=== PATIENT | female | born 1940 | race Caucasian/White ===

== ENCOUNTER 2017-12-27 17:46 | Inpatient (IN) | payer MEDICARE ==
[~2017-12-27] VITALS: Ht 165.1 cm; Wt 86.4 kg
[~2017-12-27 17:46] MED LIST: ASPI-1 PO; CLOP75TA35 PO; DIAZ2TAB PO; EZET10TA14 PO; FOLIC ACID PO; GLUC-133 PO; LEVO50TA8 PO; LOSA50TA21 PO; METO25TA6 PO; OMEG-182 PO; PROBIOTIC; TUMERIC PO; UBID1CAP54 PO; vitamin b12 PO
[2017-12-27 18:21] LABS: BASOPHILS # (AUTO) 0.1 X10'3 (0-0.2); BASOPHILS % (AUTO) 0.7 % (0-1); EOSINOPHILS # (AUTO) 0.1 X10'3 (0-0.9); HEMATOCRIT 44.8 % (35.0-45.0); HEMOGLOBIN 14.8 g/dl (12.0-16.0); LYMPHOCYTES % (AUTO) 27.5 % (21-51); MEAN CORPUSCULAR HEMOGLOBIN 29.4 PG (27.0-31.0); MEAN PLATELET VOLUME 6.3 FL (7.4-10.4); MONOCYTES # (AUTO) 0.6 X10'3 (0-0.9); MONOCYTES % (AUTO) 7.8 % (2-12); NEUTROPHILS # (AUTO) 4.5 X10'3 (1.8-7.7); PLATELET COUNT 270 X10'3 (140-440); RED BLOOD COUNT 5.04 X10'6 (4.20-5.60); WHITE BLOOD COUNT 7.3 X10'3 (4.5-11.0)
[2017-12-27 18:35] LABS: PARTIAL THROMBOPLASTIN TIME 28 SECONDS (22-32); PROTHROMBIN TIME 9.8 SECONDS (9.0-12.0)
[2017-12-27] MEDS ORDERED: nitroGLYCERIN 0.4mg/hour patch TD ONE (18:35)
[2017-12-27 18:37] LABS: ALANINE AMINOTRANSFERASE 30 U/L (12-78); ALBUMIN 3.7 G/DL (3.4-5.0); ALBUMIN/GLOBULIN RATIO 0.9 (1.1-1.5); ALKALINE PHOSPHATASE 66 IU/L (46-116); ANION GAP 8 (8-16); ASPARTATE AMINO TRANSFERASE 22 U/L (10-37); BILIRUBIN,TOTAL 0.3 MG/DL (0.1-1.0); BLOOD UREA NITROGEN 21 MG/DL (7-18); BUN/CREATININE RATIO 21.9 (6.6-38.0); CALCIUM 9.8 MG/DL (8.5-10.1); CHLORIDE 105 MMOL/L (99-107); CREATININE 0.96 MG/DL (0.40-0.90); GLUCOSE 94 MG/DL (70-104); POTASSIUM 3.6 MMOL/L (3.5-5.1); SODIUM 140 MMOL/L (135-145); TOTAL PROTEIN 7.6 G/DL (6.4-8.2); eGFR 56 ML/MIN
[2017-12-27] MEDS ORDERED: temazepam 15mg capsule PO PRN (21:00)
[2017-12-27] MEDS ORDERED: METO25TA6 PO (21:06)
[2017-12-27] MEDS ORDERED: METO50TA16 (21:06)
[2017-12-27] MEDS ORDERED: CHOL10002 PO (21:06)
[2017-12-27] MEDS ORDERED: RED30POW (21:06)
[2017-12-27] MEDS ORDERED: GARL1000 (21:06)
[2017-12-27] MEDS ORDERED: LEVO75TA PO (21:06)
[2017-12-27] MEDS ORDERED: DULO20CA50 PO (21:06)
[2017-12-27] MEDS ORDERED: ASPI-1265 PO (21:06)
[2017-12-27] MEDS ORDERED: LOSA50TA3 PO (21:06)
[2017-12-27] MEDS ORDERED: HYDROcodone/acetaminophen 5mg/325mg tablet PO PRN (21:20)
[2017-12-27] MEDS ORDERED: bisacodyl 10mg suppository rectal RC PRN (21:20)
[2017-12-27] MEDS ORDERED: HYDROmorphone 1 mg/ml syringe IV PRN (21:20)
[2017-12-27] MEDS ORDERED: magnesium hydroxide 30ml (MOM) UD suspension PO PRN (21:20)
[2017-12-27] MEDS ORDERED: HYDROcodone/acetaminophen 10/325mg tab PO PRN (21:20)
[2017-12-27] MEDS ORDERED: diphenhydrAMINE 50 mg/ml inj IV PRN (21:20)
[2017-12-27] MEDS ORDERED: acetaminophen 650mg rectal suppository RC PRN (21:20)
[2017-12-27] MEDS ORDERED: mag hydrox/Alum hydrox/simeth 30ml oral suspension PO PRN (21:20)
[2017-12-27] MEDS ORDERED: diphenhydrAMINE 25mg capsule PO PRN (21:20)
[2017-12-27] MEDS ORDERED: morphine 2 MG/ML inj. syringe IV PRN (21:20)
[2017-12-27] MEDS ORDERED: ondansetron/PF 4mg/2ml inj IV PRN (21:20)
[2017-12-27] MEDS ORDERED: acetaminophen 325mg tablet PO PRN ×2 (21:20)
[2017-12-27] MEDS ORDERED: metoclopramide 5 mg/ml inj IV PRN (21:20)
[2017-12-27] MEDS ORDERED: aminophylline 250mg/10ml inj. IV PRN (21:25)
[2017-12-27] MEDS ORDERED: nitroGLYCERIN 0.4mg SUBLingual tab SL PRN (21:25)
[2017-12-27] MEDS ORDERED: metoprolol tartrate 1mg/ml inj IV PRN (21:25)
[2017-12-27 21:40] LABS: HEMOGLOBIN A1C 5.8 % (4.5-6.2)
[2017-12-27 21:46] LABS: PHOSPHORUS 3.4 MG/DL (2.3-4.5)
[2017-12-27 22:05] VITALS: BP 121/44
[2017-12-27] MEDS: dextrose 5%-1/2 normal saline 1,000 ML IV SCH (22:09)
[2017-12-28] VITALS (14 sets, daily range): BP systolic 98–155; BP diastolic 44–63
[2017-12-28] MEDS ORDERED: regadenoson 0.4mg/5ml syringe IV ONE ×2 (06:00→09:05)
[2017-12-28] MEDS: dextrose 5%-1/2 normal saline 1,000 ML IV SCH ×3 (06:04→20:13)
[2017-12-28 07:16] LABS: CHOL/HDL RATIO 3.7 (0.00-4.99); CHOLESTEROL 180 MG/DL (0-200); HDL CHOLESTEROL 49 MG/DL (35-60); LDL CHOLESTEROL 113 MG/DL (50-100); TRIGLYCERIDES 94 MG/DL (20-135)
[2017-12-28] MEDS: pantoprazole 40mg Tablet.DR PO SCH (07:30)
[2017-12-28] MEDS: aspirin 81mg tab.chew PO SCH (07:53)
[2017-12-28] MEDS: docusate sod 100mg capsule PO SCH ×2 (07:54→20:21)
[2017-12-28] MEDS: clopidogrel 75mg tablet PO SCH (07:54)
[2017-12-28] MEDS: duloxetine 20mg capsule.DR PO SCH (07:54)
[2017-12-28] MEDS: losartan 50mg tablet PO SCH (07:54)
[2017-12-28] MEDS: levoTHYROXINE 25mcg tablet PO SCH (07:55)
[2017-12-28] MEDS: ezetimibe 10mg tablet PO SCH (07:55)
[2017-12-28] MEDS ORDERED: metoprolol tartrate 25mg tablet PO SCH (08:00)
[2017-12-28] MEDS: furosemide 20 MG/2 ML vial IV SCH ×2 (08:45→20:17)
[2017-12-28] MEDS ORDERED: aminophylline inj. 10 ML IV ONE (09:05)
[2017-12-28] MEDS ORDERED: nitroGLYCERIN 0.2mg/hour patch TD SCH (18:00)
[2017-12-28] MEDS: metoprolol tartrate 25mg tablet PO SCH (20:21)
[2017-12-29] VITALS: BP 146/51
[2017-12-29] MEDS ORDERED: nitroGLYCERIN 0.4mg/hour patch TD SCH (08:00)
[2017-12-29 08:04] VITALS: BP 193/70
[2017-12-29] MEDS: levoTHYROXINE 25mcg tablet PO SCH (08:28)
[2017-12-29] MEDS: furosemide 20 MG/2 ML vial IV SCH (08:28)
[2017-12-29] MEDS: aspirin 81mg tab.chew PO SCH (08:29)
[2017-12-29] MEDS: pantoprazole 40mg Tablet.DR PO SCH (08:30)
[2017-12-29] MEDS: docusate sod 100mg capsule PO SCH (08:31)
[2017-12-29] MEDS: duloxetine 20mg capsule.DR PO SCH (08:32)
[2017-12-29] MEDS: clopidogrel 75mg tablet PO SCH (08:32)
[2017-12-29] MEDS: ezetimibe 10mg tablet PO SCH (08:32)
[2017-12-29] MEDS: metoprolol tartrate 25mg tablet PO SCH (08:33)
[2017-12-29] MEDS: losartan 50mg tablet PO SCH (08:33)
[2017-12-29] MEDS: dextrose 5%-1/2 normal saline 1,000 ML IV SCH (08:44)
[2017-12-29] MEDS ORDERED: FURO-150 PO (09:43)
[2017-12-29 10:47] LABS: ALBUMIN 3.3 G/DL (3.4-5.0); ANION GAP 7 (8-16); BLOOD UREA NITROGEN 14 MG/DL (7-18); BUN/CREATININE RATIO 14.4 (6.6-38.0); CALCIUM 9.5 MG/DL (8.5-10.1); CHLORIDE 105 MMOL/L (99-107); CREATININE 0.97 MG/DL (0.40-0.90); GLUCOSE 88 MG/DL (70-104); POTASSIUM 3.7 MMOL/L (3.5-5.1); SODIUM 142 MMOL/L (135-145); TOTAL CARBON DIOXIDE 30.1 MMOL/L (24-32); eGFR 56 ML/MIN
[2017-12-29 11:17] VITALS: BP 177/67
== END 2017-12-29 14:13 | disposition home or self-care (01) | DRG 315 ==
LOC: ER 17:46 → ED HOLD 21:17 → EDBEDREQ 21:36 → SUR 3N 22:00
PROVIDERS: ADMIT Family Medicine; ATTEND Internal Medicine
PROC: 4A02XM4 Measurement of Cardiac Total Activity, External Approach (ICD-10-PCS; principal; 2017-12-28)
PROC: 3E033HZ Introduction of Radioactive Substance into Peripheral Vein, Percutaneous Approach (ICD-10-PCS; 2017-12-28)
DX: I27.81 Cor pulmonale (chronic) (principal); N17.9 Acute kidney failure, unspecified; I16.1 Hypertensive emergency; I50.9 Heart failure, unspecified; E03.9 Hypothyroidism, unspecified; E78.00 Pure hypercholesterolemia, unspecified; E78.5 Hyperlipidemia, unspecified; G47.30 Sleep apnea, unspecified; I25.10 Atherosclerotic heart disease of native coronary artery without angina pectoris; I44.7 Left bundle-branch block, unspecified; I87.2 Venous insufficiency (chronic) (peripheral); J44.9 Chronic obstructive pulmonary disease, unspecified; G89.29 Other chronic pain; M54.9 Dorsalgia, unspecified; I49.5 Sick sinus syndrome; I08.0 Rheumatic disorders of both mitral and aortic valves; I11.0 Hypertensive heart disease with heart failure; Z90.710 Acquired absence of both cervix and uterus; Z95.0 Presence of cardiac pacemaker; Z95.5 Presence of coronary angioplasty implant and graft; Z88.8 Allergy status to other drugs, medicaments and biological substances; Z79.890 Hormone replacement therapy; Z79.899 Other long term (current) drug therapy; Z79.82 Long term (current) use of aspirin
CPT/HCPCS: 36415; 71045; 78452; 80048; 80053; 80061; 83036; 83735; 83880; 84100; 84443; 84484; 85025; 85610; 85730; 87070; 93005; 93017; 99285; A9500; G0378; J0280; J1940

== ENCOUNTER 2018-01-19 08:44 | Outpatient (CLI) | payer MEDICARE ==
[~2018-01-19] VITALS: Ht 165.1 cm; Wt 84.8 kg
[~2018-01-19 08:44] MED LIST changes: -ASPI-1 PO; +ASPI-1265 PO; +CHOL10002 PO; -DIAZ2TAB PO; +DULO20CA50 PO; +FURO-150 PO; +GARL1000; -LEVO50TA8 PO; +LEVO75TA PO; -LOSA50TA21 PO; +LOSA50TA3 PO; +METO50TA16; -PROBIOTIC; +RED30POW
[2018-01-19] MEDS ORDERED: albuterol 2.5 MG/3 ML nebule ONE (09:42)
== END 2018-01-19 23:59 | disposition home or self-care (01) ==
LOC: RT 08:44
PROVIDERS: ATTEND Family Medicine
DX: R06.09 Other forms of dyspnea (principal); R42 Dizziness and giddiness; R90.82 White matter disease, unspecified; K21.9 Gastro-esophageal reflux disease without esophagitis; G47.39 Other sleep apnea; I11.0 Hypertensive heart disease with heart failure; I50.9 Heart failure, unspecified; J44.9 Chronic obstructive pulmonary disease, unspecified; F17.210 Nicotine dependence, cigarettes, uncomplicated; Z79.82 Long term (current) use of aspirin; Z79.899 Other long term (current) drug therapy; Z90.710 Acquired absence of both cervix and uterus
CPT/HCPCS: 70450; 94060; 94727; 94729; 94760

== ENCOUNTER 2018-08-23 06:47 | Inpatient (IN) | payer MEDICARE ==
[2018-08-17 11:43] LABS: BASOPHILS # (AUTO) 0.1 X10'3 (0-0.2); BASOPHILS % (AUTO) 1.2 % (0-1); EOSINOPHILS # (AUTO) 0.2 X10'3 (0-0.9); LYMPHOCYTES # (AUTO) 2.2 X10'3 (1.1-4.8); LYMPHOCYTES % (AUTO) 25.7 % (21-51); MEAN CORPUSCULAR HEMOGLOBIN 30.3 PG (27.0-31.0); MEAN CORPUSCULAR HGB CONC 33.7 g/dL (33.0-36.5); MEAN CORPUSCULAR VOLUME 89.8 FL (78-98); MEAN PLATELET VOLUME 6.5 FL (7.4-10.4); MONOCYTES # (AUTO) 0.8 X10'3 (0-0.9); MONOCYTES % (AUTO) 9.1 % (2-12); NEUTROPHILS # (AUTO) 5.2 X10'3 (1.8-7.7); PRE OP HEMATOCRIT 41.5 % (35.0-45.0); PRE OP PLATELET COUNT 276 X10'3 (140-440); RED BLOOD COUNT 4.62 X10'6 (4.20-5.60); RED CELL DISTRIBUTION WIDTH 13.1 % (11.5-14.5)
[2018-08-17 12:05] LABS: ALBUMIN 3.6 G/DL (3.4-5.0); ALBUMIN/GLOBULIN RATIO 0.9 (1.1-1.5); BLOOD UREA NITROGEN 21 MG/DL (7-18); BUN/CREATININE RATIO 22.8 (6.6-38.0); CALCIUM 8.9 MG/DL (8.5-10.1); CHLORIDE 104 MMOL/L (99-107); CREATININE 0.92 MG/DL (0.40-0.90); PRE OP ANION GAP 8 (8-16); PRE OP AST 19 U/L (10-37); PRE OP BILIRUB, TOTAL 0.4 MG/DL (0.0-1.0); PRE OP GLUCOSE 92 MG/DL (70-104); PRE OP POTASSIUM 3.9 MMOL/L (3.4-5.1); PRE OP SODIUM 140 MMOL/L (135-145); TOTAL CARBON DIOXIDE 27.9 MMOL/L (24-32); TOTAL PROTEIN 7.6 G/DL (6.4-8.2); eGFR 59 ML/MIN
[2018-08-17 12:06] LABS: ALKALINE PHOSPHATASE 65 IU/L (46-116); PRE OP ALT 32 U/L (30-65); PRE OP PROTIME 9.9 SECONDS (9.0-12.0)
[2018-08-23] VITALS (18 sets, daily range): BP systolic 121–148; BP diastolic 48–67
[~2018-08-23] VITALS: Ht 165.1 cm; Wt 83.3 kg
[~2018-08-23 06:47] MED LIST changes: +CLOP75TA15 PO; -CLOP75TA35 PO; +DOCUMENT DATE & TIME OF BETA-BLOCKER PO ONE; -FURO-150 PO; -GLUC-133 PO; +GLUCOSAMINE/MSN PO; -LEVO75TA PO; +LEVO88TA2 PO; -METO50TA16; +METO50TA16 PO; +acetaminophen 325mg tablet PO ONE; +cefazolin/dext.iso 2gm/100 ML IV ONE; +celeCOXIB 100mg capsule PO ONE; +famotidine 20mg tablet PO ONE; +gabapentin 300mg capsule PO ONE; +metoclopramide 5 mg/ml inj IV ONE; +oxyCODONE SR 10mg (sust. release) tab PO ONE; +ringers solution, lacted 1,000 ML IV SCH; +tranexamic acid inj. 1,000 MG in normal saline 100 ML IV ONE; +vancomycin inj 1,500 MG in normal saline 300ml IV soln IV ONE
[2018-08-23] MEDS ORDERED: bisacodyl 10mg suppository rectal RC PRN (06:50)
[2018-08-23] MEDS ORDERED: HYDROcodone/acetaminophen 10/325mg tab PO PRN (06:50)
[2018-08-23] MEDS ORDERED: HYDROmorphone 1 mg/ml syringe IV PRN (06:50)
[2018-08-23] MEDS ORDERED: HYDROmorphone inj. 0.5 MG/0.5 ML DISP.SYRIN IV PRN (06:50)
[2018-08-23] MEDS ORDERED: magnesium hydroxide 30ml (MOM) UD suspension PO PRN (06:50)
[2018-08-23] MEDS ORDERED: diphenhydrAMINE 25mg capsule PO PRN ×2 (06:50)
[2018-08-23] MEDS ORDERED: epiNEPHrine 1 mg/ml inj ONE (07:31)
[2018-08-23] MEDS ORDERED: ketorolac trometh. 30mg/ml inj. ONE (07:31)
[2018-08-23] MEDS ORDERED: vancomycin 1,000mg inj ONE (07:32)
[2018-08-23] MEDS ORDERED: ROPIVAcaine 0.5% (5mg/ml) 30ml vial ONE ×2 (07:32→08:09)
[2018-08-23] MEDS ORDERED: cloNIDine hcl/PF 100mcg/ml inj ONE (07:32)
[2018-08-23] MEDS: gabapentin 300mg capsule PO SCH ×3 (08:00→19:52)
[2018-08-23] MEDS: multivitamins, therapeutics tablet PO SCH (08:00)
[2018-08-23] MEDS: ascorbic acid 500mg tablet PO SCH ×2 (08:00→19:52)
[2018-08-23] MEDS ORDERED: fentaNYL/PF 50MCG/1 ML 2ML syringe ONE (08:06)
[2018-08-23] MEDS ORDERED: MIDAZolam 1mg/ml 10ml vial ONE (08:06)
[2018-08-23] MEDS ORDERED: morphine /PF 1mg/ml 10ml inj. ONE (08:06)
[2018-08-23] MEDS ORDERED: propofol 10mg/ml 20ml vial IV ONE (08:09)
[2018-08-23] MEDS ORDERED: tetracaine 1% (10mg/ml) pres. free inj. ONE (08:09)
[2018-08-23] MEDS ORDERED: LIDOcaine 1%/PF 5ML 10 MG/ML VIAL ONE (08:09)
[2018-08-23] MEDS ORDERED: ringers solution, lacted 1,000 ML IV SCH (08:12)
[2018-08-23] MEDS ORDERED: morphine 4 MG/ML inj SYRINge IV PRN ×2 (08:15)
[2018-08-23] MEDS ORDERED: labetalol 20mg/4ml (5mg/ml) syringe IV PRN (08:15)
[2018-08-23] MEDS ORDERED: fentaNYL/PF 50MCG/1 ML 2ML syringe IV PRN ×2 (08:15)
[2018-08-23] MEDS ORDERED: hydrALAZINE 20mg/ml inj. IV PRN (08:15)
[2018-08-23] MEDS ORDERED: ondansetron/PF 4mg/2ml inj IV PRN ×2 (08:15→09:05)
[2018-08-23] MEDS ORDERED: ePHEDrine 50MG/ML INJ. ONE (08:49)
[2018-08-23] MEDS ORDERED: dexamethasone sod phosphate 4mg/ml inj. ONE (08:55)
[2018-08-23] MEDS ORDERED: diphenhydrAMINE 50 mg/ml inj IV PRN (09:05)
[2018-08-23] MEDS ORDERED: ROPIVAcaine 0.2%/PF PAIN PUMP 400 ML IJ SCH (09:16)
--- NOTE | 2018-08-23 10:10 | NUR ---
Received from OR via bed, accompanied by Anesthesiologist. Report received. Initial physical assessment done and recorded.
--- NOTE | 2018-08-23 11:10 | NUR ---
Discharge criteria met, report to receiving floor. Transferred to room in stable condition.
[2018-08-23] MEDS ORDERED: tranexamic acid inj. 830 MG in normal saline 100ml IV soln 100 ML IV ONE (13:10)
[2018-08-23] MEDS: potassium cl 20mEq in 1/2 NS 1,000 ML IV SCH ×2 (13:46→17:50)
[2018-08-23] MEDS: ondansetron/PF 4mg/2ml inj IV PRN ×2 (14:01→19:39)
[2018-08-23] MEDS: cefazolin/dext.iso 2gm/100ml 100 ML IV SCH (16:23)
--- NOTE | 2018-08-23 18:12 | NUR ---
REPORT TO ROYER CHAVEZ
--- NOTE | 2018-08-23 18:16 | NUR ---
REPORT REC'D FROM KATHY CAMPOVERDE.
[2018-08-23] MEDS: sennosides 8.6mg tablet PO SCH (19:52)
[2018-08-24] MEDS: cefazolin/dext.iso 2gm/100ml 100 ML IV SCH ×2 (00:17→08:00)
[2018-08-24] MEDS: HYDROcodone/acetaminophen 10/325mg tab PO PRN ×2 (00:18→05:41)
[2018-08-24] MEDS: proCHLORperazine 10 MG/2 ml inj IV PRN ×2 (00:46→07:04)
[2018-08-24 02:00] VITALS: BP 114/45
[2018-08-24] MEDS: potassium cl 20mEq in 1/2 NS 1,000 ML IV SCH ×4 (03:32→22:46)
[2018-08-24 05:34] LABS: BASOPHILS % (AUTO) 0.4 % (0-1); EOSINOPHILS % (AUTO) 0.2 % (0-6); HEMATOCRIT 34.1 % (35.0-45.0); HEMOGLOBIN 11.5 g/dl (12.0-16.0); LYMPHOCYTES % (AUTO) 9.6 % (21-51); MEAN CORPUSCULAR HEMOGLOBIN 30.5 PG (27.0-31.0); MEAN CORPUSCULAR HGB CONC 33.7 g/dL (33.0-36.5); MEAN CORPUSCULAR VOLUME 90.5 FL (78-98); MEAN PLATELET VOLUME 6.7 FL (7.4-10.4); MONOCYTES # (AUTO) 0.9 X10'3 (0-0.9); MONOCYTES % (AUTO) 8.5 % (2-12); NEUTROPHILS # (AUTO) 8.4 X10'3 (1.8-7.7); NEUTROPHILS % (AUTO) 81.3 % (42-75); PLATELET COUNT 188 X10'3 (140-440); RED BLOOD COUNT 3.77 X10'6 (4.20-5.60); RED CELL DISTRIBUTION WIDTH 13.1 % (11.5-14.5); WHITE BLOOD COUNT 10.4 X10'3 (4.5-11.0)
[2018-08-24 05:38] LABS: ANION GAP 6 (8-16); CHLORIDE 105 MMOL/L (99-107); POTASSIUM 4.9 MMOL/L (3.5-5.1); SODIUM 136 MMOL/L (135-145); TOTAL CARBON DIOXIDE 25.2 MMOL/L (24-32)
[2018-08-24 06:00] VITALS: BP 116/46
--- NOTE | 2018-08-24 06:14 | NUR ---
REPORT GIVEN TO KATHY CAMPOVERDE.
[2018-08-24] MEDS: multivitamins, therapeutics tablet PO SCH (08:00)
[2018-08-24] MEDS: gabapentin 300mg capsule PO SCH ×3 (08:00→20:31)
[2018-08-24] MEDS ORDERED: aspirin 325mg tablet, delayed-release (Ecotrin) PO SCH (08:00)
[2018-08-24] MEDS: ascorbic acid 500mg tablet PO SCH ×2 (08:00→20:31)
[2018-08-24] MEDS: aspirin 81mg tab.chew PO SCH (08:30)
[2018-08-24] MEDS ORDERED: traMADol 50MG tablet PO PRN (08:40)
[2018-08-24 10:00] VITALS: BP 94/55
--- NOTE | 2018-08-24 10:26 | NUR ---
Joint replacement consult: Pt unable to wake during RD visit resting. Written high protein ed w/ RD contact information left at bedside; will monitor for ONS needs post-op this admit. N/V post-op yesterday w/ associated 0% PO. Addendum: 08/24/18 at [address] Amended: Links added.
[2018-08-24] MEDS: clopidogrel 75mg tablet PO SCH (13:15)
[2018-08-24 14:00] VITALS: BP 143/52
[2018-08-24 18:00] VITALS: BP 141/48
--- NOTE | 2018-08-24 18:25 | NUR ---
REPORT TO DYLAN SEWER PIPE LAYER HELPER
[2018-08-24] MEDS: traMADol 50MG tablet PO PRN ×2 (18:47→22:55)
[2018-08-24] MEDS: celeCOXIB 100mg capsule PO SCH (20:31)
[2018-08-24] MEDS: sennosides 8.6mg tablet PO SCH (20:31)
[2018-08-24] MEDS: acetaminophen 325mg tablet PO PRN (21:53)
[2018-08-24 22:00] VITALS: BP 141/56
[2018-08-25] MEDS: acetaminophen 325mg tablet PO PRN ×2 (03:10→07:52)
[2018-08-25] MEDS: traMADol 50MG tablet PO PRN ×4 (03:10→15:40)
[2018-08-25 06:00] LABS: BASOPHILS % (AUTO) 0.5 % (0-1); EOSINOPHILS # (AUTO) 0.1 X10'3 (0-0.9); EOSINOPHILS % (AUTO) 1.3 % (0-6); HEMATOCRIT 32.7 % (35.0-45.0); HEMOGLOBIN 11.1 g/dl (12.0-16.0); LYMPHOCYTES # (AUTO) 1.1 X10'3 (1.1-4.8); LYMPHOCYTES % (AUTO) 13.2 % (21-51); MEAN CORPUSCULAR HEMOGLOBIN 30.5 PG (27.0-31.0); MEAN CORPUSCULAR HGB CONC 33.9 g/dL (33.0-36.5); MEAN PLATELET VOLUME 6.7 FL (7.4-10.4); MONOCYTES % (AUTO) 12.1 % (2-12); NEUTROPHILS # (AUTO) 6.1 X10'3 (1.8-7.7); NEUTROPHILS % (AUTO) 72.9 % (42-75); PLATELET COUNT 169 X10'3 (140-440); RED BLOOD COUNT 3.64 X10'6 (4.20-5.60); RED CELL DISTRIBUTION WIDTH 13.2 % (11.5-14.5); WHITE BLOOD COUNT 8.4 X10'3 (4.5-11.0)
[2018-08-25 06:10] VITALS: BP 120/41
--- NOTE | 2018-08-25 06:24 | NUR ---
Patient in room ORTHO 4024. I have received report from Zuleyka CHAVEZ and had the opportunity to ask questions and assume patient care.
[2018-08-25] MEDS: celeCOXIB 100mg capsule PO SCH ×2 (07:51→20:36)
[2018-08-25] MEDS: multivitamins, therapeutics tablet PO SCH (07:52)
[2018-08-25] MEDS: aspirin 81mg tab.chew PO SCH (07:52)
[2018-08-25] MEDS: clopidogrel 75mg tablet PO SCH (07:52)
[2018-08-25] MEDS: ascorbic acid 500mg tablet PO SCH ×2 (07:52→20:36)
[2018-08-25] MEDS: gabapentin 300mg capsule PO SCH ×3 (07:52→20:38)
[2018-08-25 10:00] VITALS: BP 138/57
[2018-08-25] MEDS ORDERED: ezetimibe 10mg tablet PO ONE (10:20)
[2018-08-25] MEDS ORDERED: duloxetine 20mg capsule.DR PO ONE (10:20)
[2018-08-25] MEDS ORDERED: levoTHYROXINE 88mcg tablet PO ONE (10:25)
[2018-08-25] MEDS ORDERED: metoprolol tartrate 25mg tablet PO ONE (10:25)
[2018-08-25] MEDS ORDERED: losartan 50mg tablet PO ONE (10:25)
[2018-08-25] MEDS ORDERED: ondansetron 4mg rapidly disintigrating tab PO PRN (11:05)
[2018-08-25 18:00] VITALS: BP 116/56
--- NOTE | 2018-08-25 18:25 | NUR ---
Patient report given to Tom CHAVEZ.
--- NOTE | 2018-08-25 19:00 | NUR ---
Patient in room ORTHO 4024. I have received report from Erika Zuniga RN and had the opportunity to ask questions and assume patient care.
[2018-08-25] MEDS: sennosides 8.6mg tablet PO SCH (20:39)
[2018-08-25] MEDS ORDERED: metoprolol tartrate 50mg tablet PO SCH (21:00)
[2018-08-25 22:00] VITALS: BP 143/52
--- NOTE | 2018-08-26 01:00 | NUR ---
Pt woke up and said she was having nightmares. She thought it might be the medications that were giving her nightmares. The nurse told her that he really didn't think the medications received at were the type to incite nightmares. After some discussion she felt like she might be getting a little claustrophobic. The curtains were drawn the window shade was lifted and one of the smaller lights were turned on, She said that she felt better.
[2018-08-26] MEDS: traMADol 50MG tablet PO PRN ×2 (04:31→08:15)
[2018-08-26 06:10] VITALS: BP 118/55
[2018-08-26 06:16] LABS: BASOPHILS % (AUTO) 0.4 % (0-1); EOSINOPHILS # (AUTO) 0.1 X10'3 (0-0.9); EOSINOPHILS % (AUTO) 1.7 % (0-6); HEMATOCRIT 29.6 % (35.0-45.0); HEMOGLOBIN 10.3 g/dl (12.0-16.0); LYMPHOCYTES % (AUTO) 10.9 % (21-51); MEAN CORPUSCULAR HEMOGLOBIN 30.9 PG (27.0-31.0); MEAN CORPUSCULAR HGB CONC 34.8 g/dL (33.0-36.5); MEAN CORPUSCULAR VOLUME 88.8 FL (78-98); MEAN PLATELET VOLUME 6.5 FL (7.4-10.4); MONOCYTES # (AUTO) 0.9 X10'3 (0-0.9); MONOCYTES % (AUTO) 10.6 % (2-12); NEUTROPHILS # (AUTO) 6.7 X10'3 (1.8-7.7); NEUTROPHILS % (AUTO) 76.4 % (42-75); PLATELET COUNT 163 X10'3 (140-440); RED BLOOD COUNT 3.33 X10'6 (4.20-5.60); RED CELL DISTRIBUTION WIDTH 13.2 % (11.5-14.5); WHITE BLOOD COUNT 8.7 X10'3 (4.5-11.0)
--- NOTE | 2018-08-26 06:30 | NUR ---
Patient in room ORTHO 4024. I have received report from Tom CHAVEZ and had the opportunity to ask questions and assume patient care.
[2018-08-26] MEDS ORDERED: levoTHYROXINE 88mcg tablet PO SCH (08:00)
[2018-08-26] MEDS ORDERED: duloxetine 20mg capsule.DR PO SCH (08:00)
[2018-08-26] MEDS ORDERED: metoprolol tartrate 25mg tablet PO SCH (08:00)
[2018-08-26] MEDS ORDERED: ezetimibe 10mg tablet PO SCH (08:00)
[2018-08-26] MEDS ORDERED: losartan 50mg tablet PO SCH (08:00)
[2018-08-26] MEDS: gabapentin 300mg capsule PO SCH (08:12)
[2018-08-26] MEDS: multivitamins, therapeutics tablet PO SCH (08:12)
[2018-08-26] MEDS: ascorbic acid 500mg tablet PO SCH (08:13)
[2018-08-26] MEDS: clopidogrel 75mg tablet PO SCH (08:13)
[2018-08-26] MEDS: celeCOXIB 100mg capsule PO SCH (08:13)
--- NOTE | 2018-08-26 09:57 | NUR ---
Ropivacaine on-q pump pulled without difficulty.
[2018-08-26 10:00] VITALS: BP 150/47
--- NOTE | 2018-08-26 11:51 | NUR ---
Clled Dr. Zhu phone about patient having hallucinations, waiting for call back.
--- NOTE | 2018-08-26 12:11 | NUR ---
patient report given to Ivan CHAVEZ at [facility]
--- NOTE | 2018-08-26 14:20 | NUR ---
Patient discharged to [facility]. Patient mildly confused possibly from medications. Dr. Zhu called earlier in regards to this but he was in surgery, message left. Patient is okay for discharge she had all belongings.
== END 2018-08-26 14:15 | DRG 470 ==
LOC: PAS IN 06:47 → EDSTATUS 07:30 → ORTHO 4S 11:15
PROVIDERS: ADMIT Orthopaedic Surgery; ATTEND Orthopaedic Surgery
PROC: 3E0T3BZ Introduction of Anesthetic Agent into Peripheral Nerves and Plexi, Percutaneous Approach (ICD-10-PCS; 2018-08-23)
PROC: 5A09357 Assistance with Respiratory Ventilation, Less than 24 Consecutive Hours, Continuous Positive Airway Pressure (ICD-10-PCS; 2018-08-23)
PROC: 0SRD0J9 Replacement of Left Knee Joint with Synthetic Substitute, Cemented, Open Approach (ICD-10-PCS; principal; 2018-08-23 08:09)
PROC: 5A09357 Assistance with Respiratory Ventilation, Less than 24 Consecutive Hours, Continuous Positive Airway Pressure (ICD-10-PCS; 2018-08-24)
PROC: 5A09357 Assistance with Respiratory Ventilation, Less than 24 Consecutive Hours, Continuous Positive Airway Pressure (ICD-10-PCS; 2018-08-25)
PROC: 5A09357 Assistance with Respiratory Ventilation, Less than 24 Consecutive Hours, Continuous Positive Airway Pressure (ICD-10-PCS; 2018-08-26)
DX: M17.12 Unilateral primary osteoarthritis, left knee (principal); D62 Acute posthemorrhagic anemia; J44.9 Chronic obstructive pulmonary disease, unspecified; G47.30 Sleep apnea, unspecified; I25.10 Atherosclerotic heart disease of native coronary artery without angina pectoris; E78.5 Hyperlipidemia, unspecified; I12.9 Hypertensive chronic kidney disease with stage 1 through stage 4 chronic kidney disease, or unspecified chronic kidney disease; F32.9 Major depressive disorder, single episode, unspecified; N18.2 Chronic kidney disease, stage 2 (mild); E66.9 Obesity, unspecified; Z68.30 Body mass index [BMI] 30.0-30.9, adult; Z95.0 Presence of cardiac pacemaker; Z87.891 Personal history of nicotine dependence; Z88.8 Allergy status to other drugs, medicaments and biological substances; Z86.73 Personal history of transient ischemic attack (TIA), and cerebral infarction without residual deficits
CPT/HCPCS: 36415; 71046; 73560; 80051; 80053; 82948; 84443; 85025; 85610; 85730; 86885; 86900; 86901; 87081; 93005; 97110; 97116; 97162; 97530; A4215; A6449; A6454; A7000; C1713; C1758; C1776; G0378; J0171; J0735; J0780; J1100; J1885; J2250; J2270; J2405; J2704; J2765; J2795; J3010; J3370; J3480; J7120

== ENCOUNTER 2020-10-23 08:40 | Outpatient (CLI) | payer MEDICARE ==
[~2020-10-23 08:40] MED LIST changes: -ASPI-1265 PO; -DOCUMENT DATE & TIME OF BETA-BLOCKER PO ONE; -EZET10TA14 PO; +EZET10TA6 PO; +LOP25T PO; -METO25TA6 PO; -acetaminophen 325mg tablet PO ONE; -cefazolin/dext.iso 2gm/100 ML IV ONE; -celeCOXIB 100mg capsule PO ONE; -famotidine 20mg tablet PO ONE; -gabapentin 300mg capsule PO ONE; -metoclopramide 5 mg/ml inj IV ONE; -oxyCODONE SR 10mg (sust. release) tab PO ONE; -ringers solution, lacted 1,000 ML IV SCH; +succinylcholine 20mg/ml inj IV ONE; -tranexamic acid inj. 1,000 MG in normal saline 100 ML IV ONE; -vancomycin inj 1,500 MG in normal saline 300ml IV soln IV ONE
== END 2020-10-23 23:59 | disposition home or self-care (01) ==
LOC: RT 08:40
PROVIDERS: ATTEND Family Medicine
DX: R94.2 Abnormal results of pulmonary function studies (principal); G47.33 Obstructive sleep apnea (adult) (pediatric); J44.9 Chronic obstructive pulmonary disease, unspecified
CPT/HCPCS: 94010; 94727; 94729; J0330

== ENCOUNTER 2021-01-02 10:10 | Emergency (ER) | payer MEDICARE ==
[~2021-01-02] VITALS: Ht 162.6 cm; Wt 91.8 kg
[~2021-01-02 10:10] MED LIST changes: -succinylcholine 20mg/ml inj IV ONE
[2021-01-02] MEDS ORDERED: proCHLORperazine 10 MG/2 ml inj IV ONE (10:50)
[2021-01-02] MEDS ORDERED: normal saline 1000ML IV soln IVB ONE ×2 (10:50→12:10)
[2021-01-02 11:04] LABS: BASOPHILS % (AUTO) 0.3 % (0-1); EOSINOPHILS # (AUTO) 0.1 X10'3 (0-0.9); EOSINOPHILS % (AUTO) 0.6 % (0-6); HEMATOCRIT 42.8 % (35.0-45.0); HEMOGLOBIN 14.4 g/dl (12.0-16.0); LYMPHOCYTES # (AUTO) 0.3 X10'3 (1.1-4.8); LYMPHOCYTES % (AUTO) 3.3 % (21-51); MEAN CORPUSCULAR HEMOGLOBIN 29.6 PG (27.0-31.0); MEAN CORPUSCULAR HGB CONC 33.7 g/dL (33.0-36.5); MEAN CORPUSCULAR VOLUME 87.8 FL (78-98); MEAN PLATELET VOLUME 6.7 FL (7.4-10.4); MONOCYTES # (AUTO) 0.4 X10'3 (0-0.9); MONOCYTES % (AUTO) 4.3 % (2-12); NEUTROPHILS # (AUTO) 9.2 X10'3 (1.8-7.7); NEUTROPHILS % (AUTO) 91.5 % (42-75); PLATELET COUNT 233 X10'3 (140-440); RED BLOOD COUNT 4.87 X10'6 (4.20-5.60); RED CELL DISTRIBUTION WIDTH 14.4 % (11.5-14.5)
[2021-01-02 11:34] LABS: ALANINE AMINOTRANSFERASE 31 U/L (12-78); ALBUMIN 3.4 G/DL (3.4-5.0); ALBUMIN/GLOBULIN RATIO 0.9 (1.1-1.5); ALKALINE PHOSPHATASE 54 IU/L (46-116); ANION GAP 8 (8-16); ASPARTATE AMINO TRANSFERASE 21 U/L (10-37); BILIRUBIN,TOTAL 0.4 MG/DL (0.1-1.0); BLOOD UREA NITROGEN 35 MG/DL (7-18); BUN/CREATININE RATIO 30.4 (6.6-38.0); CALCIUM 9.1 MG/DL (8.5-10.1); CHLORIDE 107 MMOL/L (99-107); CREATININE 1.15 MG/DL (0.40-0.90); GLUCOSE 127 MG/DL (70-104); LIPASE 192 U/L (73-393); POTASSIUM 4.6 MMOL/L (3.5-5.1); SODIUM 141 MMOL/L (135-145); TOTAL CARBON DIOXIDE 26.3 MMOL/L (24-32); TOTAL PROTEIN 7.4 G/DL (6.4-8.2); eGFR 45 ML/MIN
[2021-01-02] MEDS ORDERED: acetaminophen 325mg tablet PO ONE (12:15)
[2021-01-02] MEDS ORDERED: ONDA4TAB6 PO (12:33)
[2021-01-02 13:21] VITALS: BP 168/49
== END 2021-01-02 13:23 | disposition home or self-care (01) ==
LOC: ER 10:10
DX: R11.2 Nausea with vomiting, unspecified (principal); R06.02 Shortness of breath; R51.9 Headache, unspecified; I25.10 Atherosclerotic heart disease of native coronary artery without angina pectoris; I11.0 Hypertensive heart disease with heart failure; I50.9 Heart failure, unspecified; E78.00 Pure hypercholesterolemia, unspecified; J44.9 Chronic obstructive pulmonary disease, unspecified; G89.29 Other chronic pain; Z85.9 Personal history of malignant neoplasm, unspecified; Z95.5 Presence of coronary angioplasty implant and graft; Z90.710 Acquired absence of both cervix and uterus; Z95.0 Presence of cardiac pacemaker; Z79.899 Other long term (current) drug therapy; Z88.8 Allergy status to other drugs, medicaments and biological substances
CPT/HCPCS: 36415; 71045; 80053; 83690; 85025; 93005; 96361; 96374; 99285; J0780; J7030

== ENCOUNTER 2021-12-03 08:49 | Day surgery (SDC) | payer MEDICARE ==
[2021-12-02 08:46] LABS: BASOPHILS # (AUTO) 0.1 X10'3 (0-0.2); EOSINOPHILS # (AUTO) 0.2 X10'3 (0-0.9); EOSINOPHILS % (AUTO) 2.4 % (0-6); HEMATOCRIT 41.3 % (35.0-45.0); HEMOGLOBIN 13.5 g/dl (12.0-16.0); LYMPHOCYTES % (AUTO) 22.6 % (21-51); MEAN CORPUSCULAR HEMOGLOBIN 28.9 PG (27.0-31.0); MEAN CORPUSCULAR HGB CONC 32.7 g/dL (33.0-36.5); MEAN CORPUSCULAR VOLUME 88.5 FL (78-98); MEAN PLATELET VOLUME 6.6 FL (7.4-10.4); MONOCYTES # (AUTO) 0.9 X10'3 (0-0.9); NEUTROPHILS # (AUTO) 5.8 X10'3 (1.8-7.7); PLATELET COUNT 235 X10'3 (140-440); RED BLOOD COUNT 4.67 X10'6 (4.20-5.60); RED CELL DISTRIBUTION WIDTH 13.8 % (11.5-14.5); WHITE BLOOD COUNT 9.1 X10'3 (4.5-11.0)
[2021-12-02 08:50] LABS: ALBUMIN 3.2 G/DL (3.4-5.0); ANION GAP 5 (8-16); BLOOD UREA NITROGEN 35 MG/DL (7-18); BUN/CREATININE RATIO 29.4 (6.6-38.0); CALCIUM 9.5 MG/DL (8.5-10.1); CHLORIDE 106 MMOL/L (99-107); CREATININE 1.19 MG/DL (0.40-0.90); GLUCOSE 92 MG/DL (70-104); POTASSIUM 4.5 MMOL/L (3.5-5.1); SODIUM 142 MMOL/L (135-145); TOTAL CARBON DIOXIDE 30.6 MMOL/L (24-32); eGFR 44 ML/MIN
[~2021-12-03] VITALS: Ht 162.6 cm; Wt 96.0 kg
[2021-12-03] VITALS (11 sets, daily range): BP systolic 148–169; BP diastolic 58–81
[~2021-12-03 08:49] MED LIST changes: +ONDA4TAB6 PO
[2021-12-03] MEDS ORDERED: diphenhydrAMINE 25mg capsule PO PRN (09:05)
[2021-12-03] MEDS ORDERED: LORazepam 0.5 MG tablet PO PRN (09:05)
[2021-12-03] MEDS ORDERED: normal saline 1,000 ML IV SCH (09:05)
[2021-12-03] MEDS ORDERED: midazolam 1 mg/ML 2ml injection ONE (10:29)
[2021-12-03] MEDS ORDERED: verapamil 2.5 mg/ml inj IV ONE (10:29)
[2021-12-03] MEDS ORDERED: nitroGLYCERIN-Tridil 50MG/D5W 250 ML IV ONE (10:29)
[2021-12-03] MEDS ORDERED: fentaNYL/PF 50MCG/1 ML 2ML syringe ONE (10:29)
[2021-12-03] MEDS ORDERED: LIDOcaine 1% (10mg/ml) 2ml vial ONE (10:30)
[2021-12-03] MEDS ORDERED: heparin 1,000unit/ml 10ml vial 10 ML ONE (10:30)
[2021-12-03] MEDS ORDERED: iohexol 350MG/ML 100ml bottle IV ONE (10:31)
[2021-12-03] MEDS ORDERED: iohexol 350 MG/ML 50ML vial IV ONE (10:34)
[2021-12-03] MEDS ORDERED: DULO-31 PO (10:34)
[2021-12-03] MEDS ORDERED: ASPI81TA52 PO (10:34)
[2021-12-03] MEDS ORDERED: ROSU10TA28 PO (10:34)
[2021-12-03] MEDS ORDERED: FLUT15.87 INH (10:35)
[2021-12-03] MEDS ORDERED: OMEP20CA16 PO (10:35)
[2021-12-03] MEDS ORDERED: acetylcysteine 200 MG/ml 4ml vial PO PRN (10:40)
[2021-12-03] MEDS ORDERED: sodium bicarbonate (8.4%) inj. 150 ML in dextrose 5%-water 1,000 ML IV ONE ×2 (10:45→16:25)
[2021-12-03] MEDS ORDERED: hydrALAZINE 20mg/ml inj. IV ONE (13:30)
[2021-12-03 15:10] LABS: ISTAT Hct MIX 37 %PCV (35-45); ISTAT O2 SATURATION MIX VENOUS 59 % (60-80); ISTAT SOURCE BLNK
[2021-12-03 15:10] LABS: ISTAT Hct MIX 37 %PCV (35-45); ISTAT O2 SATURATION MIX VENOUS 89 % (60-80); ISTAT SOURCE BLNK
--- NOTE | 2021-12-03 16:30 | NUR ---
Pt up to bathroom with assist and able to ambulate without difficulty; on standing back up from toilet she became dizzy and very light headed. BP, HR and rhythm stable. Assisted back to bed via w/c with [address] Szymanski called to inform. Orders for 250 bolus and monitoring of her condition.
[2021-12-03] MEDS ORDERED: diltiazem 5mg/ml 5ml inj. IV PRN (18:05)
== END 2021-12-03 20:45 | disposition home or self-care (01) ==
LOC: SSTAY O 08:49
PROVIDERS: ATTEND Internal Medicine Cardiovascular Disease
DX: R94.30 Abnormal result of cardiovascular function study, unspecified (principal); I25.10 Atherosclerotic heart disease of native coronary artery without angina pectoris; E78.5 Hyperlipidemia, unspecified; I08.0 Rheumatic disorders of both mitral and aortic valves; I11.0 Hypertensive heart disease with heart failure; J44.9 Chronic obstructive pulmonary disease, unspecified; K21.9 Gastro-esophageal reflux disease without esophagitis; M19.90 Unspecified osteoarthritis, unspecified site; D50.9 Iron deficiency anemia, unspecified; I50.9 Heart failure, unspecified; Z95.0 Presence of cardiac pacemaker; Z98.890 Other specified postprocedural states; Z79.899 Other long term (current) drug therapy; Z79.82 Long term (current) use of aspirin; E66.3 Overweight; Z90.710 Acquired absence of both cervix and uterus; Z88.8 Allergy status to other drugs, medicaments and biological substances
CPT/HCPCS: 36415; 76937; 80048; 82803; 85014; 85025; 85610; 93005; 93460; 99152; 99153; C1751; C1769; C1894; J0360; J1644; J2250; J3010; J3490; J7030; J7070; Q0163; Q9967; A4620; A5120; A6258

== ENCOUNTER 2022-10-11 05:54 | Emergency (ER) | payer MEDICARE ==
[~2022-10-11] VITALS: Ht 162.6 cm; Wt 95.9 kg
[~2022-10-11 05:54] MED LIST changes: +ALBU2.5V7 NEB; +ASPI81TA52 PO; +CEFU500T66 PO; +DULO-31 PO; -DULO20CA50 PO; +FLUT15.87 INH; +FURO-150 PO; +IPRA3AMP9 NEB; +LORA10CA PO; +LOSA-416 PO; -LOSA50TA3 PO; +MONT-40 PO; +NITR0.4T51 SL; +OMEP20CA16 PO; +ONDA4TAB12 PO; -ONDA4TAB6 PO; +PRED20TA PO; +TRIA15OI9 TOP
[2022-10-11] MEDS ORDERED: normal saline 1000ML IV soln IVB ONE (06:50)
[2022-10-11 07:53] LABS: BILIRUBIN,URINE NEGATIVE (Neg); CLARITY,URINE CLEAR (Clear); COLOR,URINE STRAW (Yellow); GLUCOSE, URINE NEGATIVE (Neg); KETONES,URINE NEGATIVE (Neg); LEUKOCYTE ESTERASE ,URINE NEGATIVE (Neg); NITRITES, URINE NEGATIVE (Neg); OCCULT BLOOD,URINE MODERATE (Neg); PROTEIN,URINE 100 mg/dl (Neg); UROBILINOGEN,URINE 0.2 E.U/dL (0.2-1.0)
[2022-10-11 07:55] LABS: BASOPHILS # (AUTO) 0.1 X10'3 (0-0.2); BASOPHILS % (AUTO) 0.7 % (0-1); EOSINOPHILS # (AUTO) 0.1 X10'3 (0-0.9); EOSINOPHILS % (AUTO) 0.9 % (0-6); HEMOGLOBIN 12.7 g/dl (12.0-16.0); LYMPHOCYTES # (AUTO) 1.2 X10'3 (1.1-4.8); LYMPHOCYTES % (AUTO) 16.6 % (21-51); MEAN CORPUSCULAR HEMOGLOBIN 28.4 PG (27.0-31.0); MEAN CORPUSCULAR HGB CONC 32.6 g/dL (33.0-36.5); MEAN PLATELET VOLUME 6.7 FL (7.4-10.4); MONOCYTES # (AUTO) 0.5 X10'3 (0-0.9); MONOCYTES % (AUTO) 6.6 % (2-12); NEUTROPHILS # (AUTO) 5.4 X10'3 (1.8-7.7); NEUTROPHILS % (AUTO) 75.2 % (42-75); PLATELET COUNT 206 X10'3 (140-440); RED BLOOD COUNT 4.48 X10'6 (4.20-5.60); RED CELL DISTRIBUTION WIDTH 14.6 % (11.5-14.5); WHITE BLOOD COUNT 7.2 X10'3 (4.5-11.0)
[2022-10-11 07:59] LABS: UA COLLECTION TYPE VOIDED
[2022-10-11 08:01] LABS: BACTERIA,URINE FEW /HPF (Neg); FINE GRANULAR CAST 0-3 /LPF (NEGATIVE); HYALINE CASTS 0-3 /LPF (NEGATIVE); MUCUS STRANDS NONE SEEN /LPF (Neg); SQUAMOUS EPITHELIAL CELL,UR MODERATE /LPF (FEW); TRANSITIONAL EPI CELLS,URINE FEW /HPF; WBC CLUMPS,URINE FEW /HPF (NEGATIVE)
[2022-10-11 08:14] LABS: ALANINE AMINOTRANSFERASE 27 U/L (12-78); ALBUMIN 2.7 G/DL (3.4-5.0); ALBUMIN/GLOBULIN RATIO 0.9 (1.1-1.5); ALKALINE PHOSPHATASE 50 IU/L (46-116); ANION GAP 6 (8-16); ASPARTATE AMINO TRANSFERASE 18 U/L (10-37); BILIRUBIN,TOTAL 0.2 MG/DL (0.1-1.0); BLOOD UREA NITROGEN 33 MG/DL (7-18); BUN/CREATININE RATIO 29.7 (10.0-20.0); CALCIUM 8.5 MG/DL (8.5-10.1); CHLORIDE 109 MMOL/L (99-107); CREATININE 1.11 MG/DL (0.40-0.90); GLUCOSE 100 MG/DL (70-104); SODIUM 141 MMOL/L (135-145); TOTAL CARBON DIOXIDE 26.3 MMOL/L (24-32); TOTAL PROTEIN 5.8 G/DL (6.4-8.2); eCRCL 34 ML/MIN; eGFR 47 ML/MIN
[2022-10-11 08:21] LABS: PRO BRAIN NATRIURETIC PEPTIDE 668 PG/ML (0-450)
[2022-10-11] MEDS ORDERED: CEPH-585 PO (09:24)
[2022-10-11] MEDS ORDERED: CefTRIAXone 2gm/D5W 50ml BAG 50 ML IV ONE (09:25)
[2022-10-11 10:38] VITALS: BP 161/53; PULSE 67; RESP 18; TEMP 97.6; O2SAT 94
== END 2022-10-11 10:48 | disposition home or self-care (01) ==
LOC: ER 05:54
DX: N39.0 Urinary tract infection, site not specified (principal); R53.1 Weakness; R53.83 Other fatigue; I13.0 Hypertensive heart and chronic kidney disease with heart failure and stage 1 through stage 4 chronic kidney disease, or unspecified chronic kidney disease; I50.9 Heart failure, unspecified; J44.9 Chronic obstructive pulmonary disease, unspecified; N18.9 Chronic kidney disease, unspecified; E03.9 Hypothyroidism, unspecified; Z91.018 Allergy to other foods; Z88.1 Allergy status to other antibiotic agents; Z79.82 Long term (current) use of aspirin; Z79.2 Long term (current) use of antibiotics
CPT/HCPCS: 36415; 71045; 80053; 81001; 83880; 84145; 84484; 85025; 87088; 93005; 96365; 99285; J0696; J7030

== ENCOUNTER 2022-10-13 06:52 | Emergency (ER) | payer MEDICARE ==
[~2022-10-13] VITALS: Ht 162.6 cm; Wt 95.9 kg
[~2022-10-13 06:52] MED LIST changes: +CEPH-585 PO
[2022-10-13 06:59] VITALS: TEMP 97.8
[2022-10-13 07:13] LABS: BASOPHILS # (AUTO) 0.1 X10'3 (0-0.2); BASOPHILS % (AUTO) 0.8 % (0-1); EOSINOPHILS # (AUTO) 0.1 X10'3 (0-0.9); EOSINOPHILS % (AUTO) 1.9 % (0-6); HEMOGLOBIN 12.6 g/dl (12.0-16.0); LYMPHOCYTES # (AUTO) 1.5 X10'3 (1.1-4.8); LYMPHOCYTES % (AUTO) 24.9 % (21-51); MEAN CORPUSCULAR HEMOGLOBIN 28.8 PG (27.0-31.0); MEAN CORPUSCULAR HGB CONC 33.2 g/dL (33.0-36.5); MEAN CORPUSCULAR VOLUME 86.6 FL (78-98); MEAN PLATELET VOLUME 6.5 FL (7.4-10.4); MONOCYTES # (AUTO) 0.5 X10'3 (0-0.9); MONOCYTES % (AUTO) 7.6 % (2-12); NEUTROPHILS % (AUTO) 64.8 % (42-75); PLATELET COUNT 203 X10'3 (140-440); RED BLOOD COUNT 4.39 X10'6 (4.20-5.60); RED CELL DISTRIBUTION WIDTH 14.5 % (11.5-14.5); WHITE BLOOD COUNT 6.2 X10'3 (4.5-11.0)
[2022-10-13 07:31] LABS: ALANINE AMINOTRANSFERASE 29 U/L (12-78); ALBUMIN 2.9 G/DL (3.4-5.0); ALBUMIN/GLOBULIN RATIO 0.9 (1.1-1.5); ALKALINE PHOSPHATASE 52 IU/L (46-116); ANION GAP 6 (8-16); ASPARTATE AMINO TRANSFERASE 17 U/L (10-37); BILIRUBIN,TOTAL 0.3 MG/DL (0.1-1.0); BLOOD UREA NITROGEN 28 MG/DL (7-18); BUN/CREATININE RATIO 19.9 (10.0-20.0); CALCIUM 9.5 MG/DL (8.5-10.1); CHLORIDE 106 MMOL/L (99-107); CREATININE 1.41 MG/DL (0.40-0.90); GLUCOSE 122 MG/DL (70-104); POTASSIUM 4.5 MMOL/L (3.5-5.1); SODIUM 140 MMOL/L (135-145); TOTAL CARBON DIOXIDE 28.1 MMOL/L (24-32); TOTAL PROTEIN 6.3 G/DL (6.4-8.2); eCRCL 27 ML/MIN; eGFR 36 ML/MIN
[2022-10-13 07:40] LABS: PRO BRAIN NATRIURETIC PEPTIDE 979 PG/ML (0-450)
--- NOTE | 2022-10-13 08:09 | NUR ---
NOTIFIED DR MOHAN THAT PT IS HYPERTENSIVE 200/64. PER IT IS OKAY FOR PT TO TAKE HER HOME MEDICATION. THIS RN WITNESSED PT TAKE HER MORNING DOSE
[2022-10-13 11:40] VITALS: PULSE 60
[2022-10-13] MEDS ORDERED: meclizine 12.5mg tablet PO ONE ×2 (12:05→12:10)
[2022-10-13] MEDS ORDERED: MECL-231 PO (12:07)
[2022-10-13 13:11] VITALS: BP 182/69; RESP 16; O2SAT 93
== END 2022-10-13 13:13 | disposition home or self-care (01) ==
LOC: ER 06:52
DX: R42 Dizziness and giddiness (principal); M25.552 Pain in left hip; I11.0 Hypertensive heart disease with heart failure; E78.00 Pure hypercholesterolemia, unspecified; I10 Essential (primary) hypertension; J44.9 Chronic obstructive pulmonary disease, unspecified; E03.9 Hypothyroidism, unspecified
CPT/HCPCS: 36415; 71045; 80053; 83880; 84484; 85025; 93005; 99285; J8597; A4615

== ENCOUNTER 2022-11-07 11:03 | Inpatient (IN) | payer MEDICARE ==
[~2022-11-07] VITALS: Ht 162.6 cm; Wt 89.0 kg
[~2022-11-07 11:03] MED LIST changes: +MECL-231 PO
--- NOTE | 2022-11-07 12:36 | NUR ---
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
[2022-11-07 12:51] LABS: BASOPHILS % (AUTO) 0.6 % (0-1); EOSINOPHILS # (AUTO) 0.1 X10'3 (0-0.9); EOSINOPHILS % (AUTO) 1.8 % (0-6); HEMATOCRIT 40.2 % (35.0-45.0); HEMOGLOBIN 13.4 g/dl (12.0-16.0); LYMPHOCYTES # (AUTO) 1.3 X10'3 (1.1-4.8); MEAN CORPUSCULAR HEMOGLOBIN 28.7 PG (27.0-31.0); MEAN CORPUSCULAR HGB CONC 33.3 g/dL (33.0-36.5); MEAN CORPUSCULAR VOLUME 86.2 FL (78-98); MEAN PLATELET VOLUME 6.6 FL (7.4-10.4); MONOCYTES # (AUTO) 0.5 X10'3 (0-0.9); MONOCYTES % (AUTO) 6.4 % (2-12); NEUTROPHILS # (AUTO) 5.9 X10'3 (1.8-7.7); NEUTROPHILS % (AUTO) 74.2 % (42-75); PLATELET COUNT 215 X10'3 (140-440); RED BLOOD COUNT 4.66 X10'6 (4.20-5.60); RED CELL DISTRIBUTION WIDTH 14.5 % (11.5-14.5); WHITE BLOOD COUNT 7.9 X10'3 (4.5-11.0)
[2022-11-07 13:03] LABS: ALANINE AMINOTRANSFERASE 29 U/L (12-78); ALBUMIN 3.1 G/DL (3.4-5.0); ALBUMIN/GLOBULIN RATIO 0.8 (1.1-1.5); ALKALINE PHOSPHATASE 50 IU/L (46-116); ANION GAP 5 (8-16); ASPARTATE AMINO TRANSFERASE 22 U/L (10-37); BILIRUBIN,TOTAL 0.3 MG/DL (0.1-1.0); BLOOD UREA NITROGEN 31 MG/DL (7-18); BUN/CREATININE RATIO 23.3 (10.0-20.0); CALCIUM 9.9 MG/DL (8.5-10.1); CHLORIDE 104 MMOL/L (99-107); CREATININE 1.33 MG/DL (0.40-0.90); GLUCOSE 120 MG/DL (70-104); POTASSIUM 4.4 MMOL/L (3.5-5.1); SODIUM 139 MMOL/L (135-145); TOTAL CARBON DIOXIDE 30.2 MMOL/L (24-32); TOTAL PROTEIN 6.9 G/DL (6.4-8.2); eCRCL 28 ML/MIN; eGFR 38 ML/MIN
[2022-11-07] MEDS ORDERED: ondansetron/PF 4mg/2ml inj IV ONE ×3 (13:05→13:45)
[2022-11-07 13:12] LABS: PRO BRAIN NATRIURETIC PEPTIDE 995 PG/ML (0-450)
--- NOTE | 2022-11-07 13:17 | NUR ---
RN TROP 189. RN NOTIFIED DR ANAYA.
[2022-11-07] MEDS ORDERED: meclizine 12.5mg tablet PO ONE (13:45)
--- NOTE | 2022-11-07 13:55 | NUR ---
PER DR ANAYA RN TO ORD AND ADMIN MECALAZINE 25MG PO ONCE AND ZOFRAN 4MG IV ONCE.
--- NOTE | 2022-11-07 14:18 | NUR ---
RN TO ORD AND ADMIN 500CC BOLUS NS.
[2022-11-07] MEDS ORDERED: normal saline 500ml IV soln 500 ML IV ONE (14:20)
[2022-11-07] MEDS ORDERED: metoclopramide 5 mg/ml inj IV ONE (14:40)
[2022-11-07] MEDS ORDERED: hydrALAZINE 20mg/ml inj. IV ONE (14:40)
[2022-11-07] MEDS ORDERED: morphine 2 MG/ML inj. syringe IV ONE (16:00)
--- NOTE | 2022-11-07 16:04 | NUR ---
RN CONFIRMED WITH PT THAT ALL HEALTH INFO MAY BE GIVEN TO HER SON ALEKS. RN WILL CALL ALEKS BACK TO UPDATE.
[2022-11-07] MEDS ORDERED: labetalol 20mg/4ml (5mg/ml) syringe IV ONE (16:10)
--- NOTE | 2022-11-07 16:10 | NUR ---
HOSPITALIST PAGED AT 15:31 WITH NO RESPONSE. REPEAT PAGE SENT AT 16:00.
--- NOTE | 2022-11-07 16:30 | NUR ---
PT UNABLE TO GO FOR CT D/T NAUSEA AND VOMITING. RN WILL NOTIFY MD AND RE MED.
--- NOTE | 2022-11-07 16:39 | NUR ---
16:39 NO RESPONSE FROM REPEAT PAGE TO HOSPITALIST. 3RD ATTEMPT 16:40
[2022-11-07] MEDS ORDERED: potassium Cl 40MEQ/1/2NS 520ml 520 ML IV PRN (16:50)
[2022-11-07] MEDS ORDERED: potassium Cl 20 mEq SR tablet PO PRN (16:50)
[2022-11-07] MEDS ORDERED: magnesium 4gm in 100ml NS 100 ML IV PRN (16:50)
--- NOTE | 2022-11-07 16:58 | NUR ---
PER DR MOHAN RN MAY ORD 5MG VALIUM IV ONCE AND SCOPALAMINE PATCH TO HELP WITH NAUSEA SO PT MAY GET TO CT. RN WILL CONT TO MONITOR.
[2022-11-07] MEDS ORDERED: diazepam inj 5 MG/ML inj. IV ONE (17:00)
--- NOTE | 2022-11-07 17:06 | NUR ---
RN CALLED PHARM D/T SCOPALAMINE CAN NOT BE LOCATED IN ORDS AND PER PHARMACIST FAX ORD AND THEY WILL ENTER D/T THEY ARE UNABLE TO FIND IT IN MED ORDS BUT THEY DO HAVE THE MEDICATION.
[2022-11-07] MEDS ORDERED: labetalol 20mg/4ml (5mg/ml) syringe IV PRN (17:15)
[2022-11-07] MEDS ORDERED: scopolamine 1mg/72 hr patch TD ONE (17:30)
--- NOTE | 2022-11-07 17:45 | NUR ---
PT TAKEN TO CT.
--- NOTE | 2022-11-07 17:58 | NUR ---
MRI CALLED AND STATED THAT PER PT PM CARD PT PM IS NOT COMPATIBLE FOR MRI. RN WILL NOTIFY DR ROSA.
--- NOTE | 2022-11-07 18:02 | NUR ---
RN NOTIFIED DR ROSA THAT PT CAN NOT HAVE PM D/T PM NOT COMPATIBLE.
[2022-11-07] MEDS: cloNIDine 0.1 mg tablet PO SCH (21:00)
[2022-11-08] VITALS (10 sets, daily range): BP systolic 124–218; BP diastolic 42–63; PULSE 60–77; RESP 16–18; TEMP 97–97.4; O2SAT 92–96
--- NOTE | 2022-11-08 00:16 | NUR ---
Patient in room PCU 3014. I have received report from Torie CHAVEZ and had the opportunity to ask questions and assume patient care.DR bridges paged with regards diet order. patient placed on clear liquids. A&O x4.No c/o N/V
--- NOTE | 2022-11-08 05:52 | NUR ---
Comfortable night slept well
--- NOTE | 2022-11-08 06:51 | NUR ---
Problems reprioritized. Patient report given, questions answered & plan of care reviewed with valentin CHAVEZ.
[2022-11-08 07:26] LABS: ALBUMIN 2.8 G/DL (3.4-5.0); ANION GAP 4 (8-16); BLOOD UREA NITROGEN 28 MG/DL (7-18); BUN/CREATININE RATIO 15.6 (10.0-20.0); CHLORIDE 106 MMOL/L (99-107); CREATININE 1.79 MG/DL (0.40-0.90); GLUCOSE 103 MG/DL (70-104); POTASSIUM 3.8 MMOL/L (3.5-5.1); SODIUM 141 MMOL/L (135-145); TOTAL CARBON DIOXIDE 31.3 MMOL/L (24-32); eCRCL 21 ML/MIN; eGFR 27 ML/MIN
[2022-11-08 07:30] LABS: BASOPHILS # (AUTO) 0.1 X10'3 (0-0.2); BASOPHILS % (AUTO) 0.7 % (0-1); EOSINOPHILS # (AUTO) 0.2 X10'3 (0-0.9); EOSINOPHILS % (AUTO) 1.8 % (0-6); HEMATOCRIT 38.5 % (35.0-45.0); HEMOGLOBIN 12.8 g/dl (12.0-16.0); LYMPHOCYTES # (AUTO) 1.7 X10'3 (1.1-4.8); LYMPHOCYTES % (AUTO) 20.2 % (21-51); MEAN CORPUSCULAR HEMOGLOBIN 28.8 PG (27.0-31.0); MEAN CORPUSCULAR HGB CONC 33.2 g/dL (33.0-36.5); MEAN CORPUSCULAR VOLUME 86.6 FL (78-98); MEAN PLATELET VOLUME 6.8 FL (7.4-10.4); MONOCYTES # (AUTO) 0.7 X10'3 (0-0.9); MONOCYTES % (AUTO) 8.8 % (2-12); NEUTROPHILS # (AUTO) 5.8 X10'3 (1.8-7.7); NEUTROPHILS % (AUTO) 68.5 % (42-75); PLATELET COUNT 208 X10'3 (140-440); RED BLOOD COUNT 4.44 X10'6 (4.20-5.60); RED CELL DISTRIBUTION WIDTH 14.6 % (11.5-14.5); WHITE BLOOD COUNT 8.4 X10'3 (4.5-11.0)
[2022-11-08] MEDS ORDERED: MECL-226 PO (08:43)
[2022-11-08] MEDS: cloNIDine 0.1 mg tablet PO SCH ×3 (09:13→19:37)
--- NOTE | 2022-11-08 09:19 | NUR ---
PAGER ID: [phone] MESSAGE: [id number] REQ REVIEWED- PLEASE ADDRESS. STILL WANT PT. ON CLONIDINE? [phone]
[2022-11-08] MEDS ORDERED: meclizine 12.5mg tablet PO PRN (09:35)
[2022-11-08] MEDS ORDERED: albuterol 2.5 MG/3 ML nebule NEB PRN (11:20)
--- NOTE | 2022-11-08 13:25 | NUR ---
HOSPITALIST CALLED [facility] AWARE OF SCHEDULED CLONIDINE - PHARMACY STATES PROTOCOL PRN CLONIDINE.
--- NOTE | 2022-11-08 14:31 | NUR ---
HOSPITALIST STATES HE WILL ADDRESS MED REQ. FOR BP MEDS AND THAT CLONIDINE WILL BE dc'D
--- NOTE | 2022-11-08 15:18 | NUR ---
Sensation intact on bilateral feet. Addendum: 11/08/22 at 1519 by Audrey Nice RN Amended: Links added.
--- NOTE | 2022-11-08 18:56 | NUR ---
Gave report to Harley CHAVEZ.
[2022-11-08] MEDS: meclizine 12.5mg tablet PO SCH (20:55)
[2022-11-09 06:00] VITALS: BP 142/52; PULSE 70; RESP 20; TEMP 97.7; O2SAT 96
--- NOTE | 2022-11-09 06:00 | NUR ---
Patient in room PCU 3014. I have received report from Harley and had the opportunity to ask questions and assume patient care.
[2022-11-09 06:55] LABS: ALBUMIN 2.9 G/DL (3.4-5.0); ANION GAP 3 (8-16); BLOOD UREA NITROGEN 24 MG/DL (7-18); BUN/CREATININE RATIO 13.5 (10.0-20.0); CALCIUM 9.6 MG/DL (8.5-10.1); CHLORIDE 104 MMOL/L (99-107); CREATININE 1.78 MG/DL (0.40-0.90); GLUCOSE 101 MG/DL (70-104); POTASSIUM 3.9 MMOL/L (3.5-5.1); SODIUM 137 MMOL/L (135-145); TOTAL CARBON DIOXIDE 30.4 MMOL/L (24-32); eCRCL 21 ML/MIN; eGFR 27 ML/MIN
[2022-11-09 07:03] LABS: BASOPHILS # (AUTO) 0.1 X10'3 (0-0.2); BASOPHILS % (AUTO) 1.2 % (0-1); EOSINOPHILS # (AUTO) 0.2 X10'3 (0-0.9); EOSINOPHILS % (AUTO) 3.1 % (0-6); HEMATOCRIT 37.8 % (35.0-45.0); HEMOGLOBIN 12.6 g/dl (12.0-16.0); LYMPHOCYTES # (AUTO) 1.3 X10'3 (1.1-4.8); LYMPHOCYTES % (AUTO) 23.1 % (21-51); MEAN CORPUSCULAR HEMOGLOBIN 28.8 PG (27.0-31.0); MEAN CORPUSCULAR HGB CONC 33.4 g/dL (33.0-36.5); MEAN PLATELET VOLUME 6.8 FL (7.4-10.4); MONOCYTES # (AUTO) 0.5 X10'3 (0-0.9); MONOCYTES % (AUTO) 9.1 % (2-12); NEUTROPHILS # (AUTO) 3.6 X10'3 (1.8-7.7); NEUTROPHILS % (AUTO) 63.5 % (42-75); PLATELET COUNT 193 X10'3 (140-440); RED CELL DISTRIBUTION WIDTH 14.5 % (11.5-14.5); WHITE BLOOD COUNT 5.6 X10'3 (4.5-11.0)
[2022-11-09 07:06] VITALS: PULSE 68; RESP 16; O2SAT 97
[2022-11-09 08:00] VITALS: RESP 12; O2SAT 98
[2022-11-09] MEDS ORDERED: furosemide 20MG tablet PO SCH (08:00)
[2022-11-09] MEDS ORDERED: aspirin 81mg, enteric-coated 1 TAB TABLET.DR PO SCH (08:00)
[2022-11-09] MEDS ORDERED: duloxetine 30mg CAPSULE.DR PO SCH (08:00)
[2022-11-09] MEDS ORDERED: ezetimibe 10mg tablet PO SCH (08:00)
[2022-11-09] MEDS ORDERED: losartan 50mg tablet PO SCH (08:00)
[2022-11-09] MEDS ORDERED: OMEGA-3/DHA/EPA/FISH OIL 1 EACH CAPSULE.DR PO SCH (08:00)
[2022-11-09] MEDS ORDERED: clopidogrel 75mg tablet PO SCH (08:00)
[2022-11-09] MEDS ORDERED: montelukast 10mg tablet PO SCH (08:00)
[2022-11-09] MEDS ORDERED: levoTHYROXINE 88mcg tablet PO SCH (08:00)
[2022-11-09] MEDS ORDERED: metoprolol tartrate 50mg tablet PO SCH (08:00)
[2022-11-09] MEDS: meclizine 12.5mg tablet PO SCH ×2 (08:50→14:00)
[2022-11-09] MEDS: cloNIDine 0.1 mg tablet PO SCH ×2 (08:50→14:00)
[2022-11-09 11:00] VITALS: BP 108/39; PULSE 60; RESP 19; TEMP 98.2; O2SAT 97
[2022-11-09] MEDS ORDERED: MECL-231 PO (12:54)
[2022-11-09 15:00] VITALS: BP 102/41; PULSE 60; RESP 20; TEMP 97.7; O2SAT 97
--- NOTE | 2022-11-09 15:57 | NUR ---
Patient discharged to home. IV DCed. All belongings gathered and sent with patient. She was stable and had no c/o pain or discomfort at time of discharge. She left in a private vehicle with her son.
== END 2022-11-09 15:30 | disposition home health service (06) | DRG 149 ==
LOC: ER 11:04 → ED HOLD 17:05 → EDBEDREQ 23:24 → PCU 3S 23:55
PROVIDERS: ADMIT Internal Medicine; ATTEND Internal Medicine
DX: H81.399 Other peripheral vertigo, unspecified ear (principal); I21.A1 Myocardial infarction type 2; I50.32 Chronic diastolic (congestive) heart failure; I13.0 Hypertensive heart and chronic kidney disease with heart failure and stage 1 through stage 4 chronic kidney disease, or unspecified chronic kidney disease; R42 Dizziness and giddiness; I16.0 Hypertensive urgency; E03.9 Hypothyroidism, unspecified; E78.00 Pure hypercholesterolemia, unspecified; I25.10 Atherosclerotic heart disease of native coronary artery without angina pectoris; G89.29 Other chronic pain; M54.9 Dorsalgia, unspecified; E66.9 Obesity, unspecified; R56.9 Unspecified convulsions; R00.1 Bradycardia, unspecified; N18.9 Chronic kidney disease, unspecified; Z88.1 Allergy status to other antibiotic agents; Z91.018 Allergy to other foods; Z79.899 Other long term (current) drug therapy; Z79.82 Long term (current) use of aspirin; I25.2 Old myocardial infarction; Z95.0 Presence of cardiac pacemaker; Z68.33 Body mass index [BMI] 33.0-33.9, adult; Z90.710 Acquired absence of both cervix and uterus
CPT/HCPCS: 36415; 70450; 71045; 71250; 74176; 80048; 80053; 83880; 84484; 85025; 93005; 94760; 97116; 97161; 97530; 99285; A6258; G0378; J0360; J2270; J2405; J2765; J3360; J3490; J7040; J8597

== ENCOUNTER 2023-04-06 06:22 | Emergency (ER) | payer MEDICARE ==
[~2023-04-06] VITALS: Ht 162.6 cm; Wt 95.2 kg
[~2023-04-06 06:22] MED LIST changes: -CEFU500T66 PO; -CEPH-585 PO; -FLUT15.87 INH; -FOLIC ACID PO; -GLUCOSAMINE/MSN PO; -IPRA3AMP9 NEB; -LOP25T PO; -LORA10CA PO; -NITR0.4T51 SL; -OMEP20CA16 PO; -ONDA4TAB12 PO; -PRED20TA PO; -RED30POW; -TRIA15OI9 TOP; -TUMERIC PO; -UBID1CAP54 PO; -vitamin b12 PO
[2023-04-06 06:30] VITALS: BP 169/65; PULSE 90; RESP 18; TEMP 96; O2SAT 93
[2023-04-06] MEDS ORDERED: CLOT30CR19 TOP (06:57)
== END 2023-04-06 07:04 | disposition home or self-care (01) ==
LOC: ER 06:22
DX: B37.89 Other sites of candidiasis (principal); I13.0 Hypertensive heart and chronic kidney disease with heart failure and stage 1 through stage 4 chronic kidney disease, or unspecified chronic kidney disease; E13.22 Other specified diabetes mellitus with diabetic chronic kidney disease; N18.9 Chronic kidney disease, unspecified; Z88.8 Allergy status to other drugs, medicaments and biological substances; Z91.018 Allergy to other foods; Z79.899 Other long term (current) drug therapy
CPT/HCPCS: 99282